=== PATIENT | male | born 2005 | race Hispanic/Latino ===

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

== ENCOUNTER 2023-08-05 11:27 | Observation (INO) | payer BC, OTHER ==
--- OUTSIDE RECORDS SUMMARY | 2023-08-05 11:29 | XMS REPORT | Continuity of Care Document ---
Author Name Unknown Address [address] [facility] [address] [id number] [facility] thconnect Address [address] [facility] [address] [place] [address] Care Team Providers Care Mother Repairer Name Role Phone Pcp, Patient Does Not Have A Attending Clinician Lab, Jose Christy I Attending Clinician Unavailab Eryn Granados PA-C Attending Clinician ERYN KAHN Attending Clinician Unavailable Payers Payer Name Policy Type Policy Number Effective Date Expirati on Date Source Allergies, Adverse Reactions, Alerts Allergy Name Allergy Type Status Severity Reaction(s) Onset Date Inactive Date Treating Clinician Comments Source NO KNOWN ALLERGIE S Drug Class Active [facility] Social History Social Habit Start Date Stop Date Quantity Comments Source Sex Assigned At [facility] Exposure to SARS-CoV-2 (event) Yes [facility] Smoking Status Start Date Stop Date Source Unknown if ever smoked [facility] Encounters Start Date/Time End Date/Time Encounter Type Admission Type Attending Clinicians Care Facility Care Department Encounter ID Source 2020-07-17 00:00:00 2020-07-17 00:00:00 Telephone Pcp, Patient Does Not Have A [facility] .[id number] [facility] 2020-07-15 16:43:38 2020-07-15 17:03:38 Laboratory Only Lab, Eryn Robbins [facility] ER Office [address] .114 [id number] [facility] 2020-07-15 16:40:00 2020-07-15 16:40:00 Outpatient ERYN RIOS [facility] [id number] [facility]
--- NOTE | 2023-08-05 12:09 | ER ---
Nurse's Notes [facility] Name: Jean Claude Mclaughlin Age: 18 yrs Sex: Male : 2005 Arrival Date: 08/05/2023 Time: 11:27 Bed 18 Private MD: Diagnosis: Cellulitis, unspecified;Failed outpatient therapy Presentation: 08/05 11:52 Chief complaint: Abscess on lower abdomen x 5 days. On Doxycycline and Mupirocin day 2. hb Coronavirus screen: At this time, the client does not indicate any symptoms associated with coronavirus-19. Ebola Screen: No symptoms or risks identified at this time. Initial Sepsis Screen: Does the patient meet any 2 criteria? No. Patient's initial sepsis screen is negative. Does the patient have a suspected source of infection? No. Patient's initial sepsis screen is negative. Risk Assessment: Do you want to hurt yourself or someone else? Patient reports no desire to harm self or others. Onset of symptoms was August 05, 2023. 11:52 Method Of Arrival: Ambulatory hb 11:52 Acuity: KIZZY 4 hb Historical: - Allergies: 11:54 No Known Allergies; hb - Home Meds: 11:54 None [Active]; hb - PMHx: 11:54 None; hb - PSHx: 11:54 None; hb - Immunization history:: Adult Immunizations up to date. - Social history:: Smoking status: . Screenin:18 [facility] ED Fall Risk Assessment (Adult) History of falling in the last 3 months, db including since admission No falls in past 3 months (0 pts) Confusion or Disorientation No (0 pts) Intoxicated or Sedated No (0 pts) Impaired Gait No (0 pts) Mobility Assist Device Used No (0 pt) Score/Fall Risk Level 0 - 2 = Low Risk Oriented to surroundings, Maintained a safe environment. Abuse screen: Denies threats or abuse. Denies injuries from another. Nutritional screening: No deficits noted. Tuberculosis screening: No symptoms or risk factors identified. Assessment: 14:10 Reassessment: Patient appears in no apparent distress at this time. Patient and/or db family updated on plan of care and expected duration. Pain level reassessed. Patient is alert, oriented x 3, equal unlabored respirations, skin warm/dry/pink. PATIENT RETURNED TO ROOM FROM CT. General: Appears in no apparent distress. comfortable, Behavior is calm, cooperative. Pain: Complains of pain in abdomen and suprapubic area. Neuro: Level of Consciousness is awake, alert, obeys commands, Oriented to person, place, time, situation. Respiratory: Airway is patent Respiratory effort is even, unlabored, Respiratory pattern is regular, symmetrical. 14:10 Reassessment: Patient appears in no apparent distress at this time. Patient and/or db family updated on plan of care and expected duration. Pain level reassessed. PATIENT RETURNED FROM CT. 14:16 Reassessment: REPORT GIVEN TO BRIANNA GALLARDO. db 14:27 Reassessment: Patient appears in no apparent distress at this time. Patient and/or db family updated on plan of care and expected duration. Pain level reassessed. Patient is alert, oriented x 3, equal unlabored respirations, skin warm/dry/pink. Vital Signs: 11:52 BP 163 / 99; Pulse 78; Resp 16; Temp 98.4(O); Pulse Ox 97% on R/A; Weight 162.84 kg; hb Height 5 ft. 6 in. ; Pain 2/10; 14:12 BP 144 / 89; Pulse 74; Resp 18; Pulse Ox 98% on R/A; db 11:52 Body Mass Index 57.94 (162.84 kg, 167.64 cm) hb 11:52 Pain Scale: Adult hb ED Course: 11:31 Patient arrived in ED. mg5 11:42 Stacey Muñiz, BRIANNA is Primary Nurse. db 11:43 [facility]C [facility] snw 11:43 Jovanni Green MD is Attending Physician. snw 11:54 Triage completed. hb 11:54 Arm band placed on. hb 12:07 Omar Casiano MD is Hospitalizing Provider. snw 12:28 Hemoglobin A1c Sent. tl4 12:28 Blood Culture Adult (2) Sent. tl4 12:28 Chem 7 Sent. tl4 12:28 CBC with Diff Sent. tl4 12:30 Inserted saline lock: 22 gauge in right antecubital area, using aseptic technique. bp Blood collected. 14:27 Patient has correct armband on for positive identification. Bed in low position. Call db light in reach. Side rails up X 1. Provided Education on: ADMISSION. Pulse ox on. NIBP on. 14:27 No provider procedures requiring assistance completed. Patient admitted, IV remains in db place. Administered Medications: 12:41 Drug: vancoMYCIN IVPB 1.5 grams IVPB at calculated rate once Route: IVPB; Rate: tl4 calculated rate; Site: right antecubital; 14:28 Follow up: Response: No adverse reaction; IV Status: Infusion continued upon admission db Medication: 14:27 VIS not applicable for this client. db Outcome: 12:08 Decision to Hospitalize by Provider. snw 14:27 Admitted to Med/surg via wheelchair, Report called to BRIANNA GALLARDO db 14:27 Condition: stable 14:27 Instructed on the need for admit, 14:54 Patient left the ED. eb Signatures: Roxane Bernardo, COUNTER FORMER-C COUNTER FORMER-Csnw Nadine Mead, RN RN Dyllan Nevarez, RN RN Colleen Berg Danielle, RN RN db Corazon Schmid mg5 Logdavirgilio, Chalo tl4
--- NOTE | 2023-08-05 12:09 | EDPHYS ---
Physician Documentation [facility] Name: Jean Claude Mclaughlin Age: 18 yrs Sex: Male : 2005 Arrival Date: 08/05/2023 Time: 11:27 Bed 18 Private MD: ED Physician Jovanni Green HPI: 08/05 12:41 This 18 yrs old Male presents to ER via Ambulatory with complaints of Boil. snw 12:41 The patient presents with cellulitis of the suprapubic area. Description: draining, snw erythematous. Onset: The symptoms/episode began/occurred 4 day(s) ago, and became persistent. The patient has not experienced similar symptoms in the past. The patient has been recently seen by a physician: the patient's primary care provider, 3 day(s) ago, with similar presenting complaints, was given a prescription for antibiotics. erythema increasing up toward belly button. Historical: - Allergies: 11:54 No Known Allergies; hb - Home Meds: 11:54 None [Active]; hb - PMHx: 11:54 None; hb - PSHx: 11:54 None; hb - Immunization history:: Adult Immunizations up to date. - Social history:: Smoking status: . ROS: 12:41 Constitutional: Negative for fever, chills, and weight loss, Eyes: Negative for injury, snw pain, redness, and discharge, ENT: Negative for injury, pain, and discharge, Neck: Negative for injury, pain, and swelling, Cardiovascular: Negative for chest pain, palpitations, and edema, Respiratory: Negative for shortness of breath, cough, wheezing, and pleuritic chest pain, Abdomen/GI: Negative for abdominal pain, nausea, vomiting, diarrhea, and constipation, Back: Negative for injury and pain, : Negative for injury, bleeding, discharge, and swelling, MS/Extremity: Negative for injury and deformity, Neuro: Negative for headache, weakness, numbness, tingling, and seizure, Psych: Negative for depression, anxiety, suicide ideation, homicidal ideation, and hallucinations, 12:41 Skin: Positive for cellulitis, of the suprapubic area, Exam: 12:27 Head/Face: Normocephalic, atraumatic. Eyes: Pupils equal round and reactive to light, snw extra-ocular motions intact. Lids and lashes normal. Conjunctiva and sclera are non-icteric and not injected. Cornea within normal limits. Periorbital areas with no swelling, redness, or edema. ENT: Nares patent. No nasal discharge, no septal abnormalities noted. Tympanic membranes are normal and external auditory canals are clear. Oropharynx with no redness, swelling, or masses, exudates, or evidence of obstruction, uvula midline. Mucous membranes moist. Neck: Trachea midline, no thyromegaly or masses palpated, and no cervical lymphadenopathy. Supple, full range of motion without nuchal rigidity, or vertebral point tenderness. No Meningismus. Chest/axilla: Normal chest wall appearance and motion. Nontender with no deformity. No lesions are appreciated. Cardiovascular: Regular rate and rhythm with a normal S1 and S2. No gallops, murmurs, or rubs. Normal PMI, no JVD. No pulse deficits. Respiratory: Lungs have equal breath sounds bilaterally, clear to auscultation and percussion. No rales, rhonchi or wheezes noted. No increased work of breathing, no retractions or nasal flaring. Abdomen/GI: Soft, non-tender, with normal bowel sounds. No distension or tympany. No guarding or rebound. No evidence of tenderness throughout. Back: No spinal tenderness. No costovertebral tenderness. Full range of motion. MS/ Extremity: Pulses equal, no cyanosis. Neurovascular intact. Full, normal range of motion. Neuro: Awake and alert, GCS 15, oriented to person, place, time, and situation. Cranial nerves II-XII grossly intact. Motor strength 5/5 in all extremities. Sensory grossly intact. Cerebellar exam normal. Normal gait. Psych: Awake, alert, with orientation to person, place and time. Behavior, mood, and affect are within normal limits. 12:27 Constitutional: The patient appears alert, awake, obese, 12:27 Skin: cellulitis, that is moderate, on the suprapubic area, folliculitis that became cutaneous abscess, ruptured on Sunday (48-72 hours ago), placed on doxy and mupirocin. Cellulitis expanding, erythema midway to umbilicus, Vital Signs: 11:52 BP 163 / 99; Pulse 78; Resp 16; Temp 98.4(O); Pulse Ox 97% on R/A; Weight 162.84 kg; hb Height 5 ft. 6 in. ; Pain 2/10; 14:12 BP 144 / 89; Pulse 74; Resp 18; Pulse Ox 98% on R/A; db 11:52 Body Mass Index 57.94 (162.84 kg, 167.64 cm) hb 11:52 Pain Scale: Adult hb MDM: 11:43 Patient medically screened. snw 12:31 Differential diagnosis: viral Infection, bacterial infection, cellulitis, abscess. Data snw reviewed: vital signs, nurses notes. Consideration of Admission/Observation Patient was admitted/placed on observation. Management of patient was discussed with the following: Hospitalist: Dr. Balderrama. Counseling: I had a detailed discussion with the patient and/or guardian regarding the historical points, exam findings, and any diagnostic results supporting the discharge/admit diagnosis, the presence of at least one elevated blood pressure reading (>120/80) during this emergency department visit, the need for further work-up and treatment in the hospital. 08/05 12:06 Order name: CBC with Diff; Complete Time: 12:49 snw 08/05 12:06 Order name: Chem 7; Complete Time: 12:58 snw 08/05 12:06 Order name: Blood Culture Adult (2) snw 08/05 12:06 Order name: Hemoglobin A1c snw 08/05 12:59 Order name: CT Abd/Pelvis - IV Contrast Only hb 08/05 14:24 Order name: CT; Complete Time: 14:27 EDMS Administered Medications: 12:41 Drug: vancoMYCIN IVPB 1.5 grams IVPB at calculated rate once Route: IVPB; Rate: tl4 calculated rate; Site: right antecubital; 14:28 Follow up: Response: No adverse reaction; IV Status: Infusion continued upon admission db Disposition Summary: 08/05/23 12:08 Hospitalization Ordered Notes: Hospitalization Status: Inpatient Admission snw Provider: Omar Casiano snsekou Condition: Stable snw Problem: new snw Symptoms: are unchanged snw Bed/Room Type: Standard snw Location: Telemetry/MedSurg (Inpatient)(08/05/23 14:07) eb Room Assignment: 219(08/05/23 14:07) eb Diagnosis - Cellulitis, unspecified snw - Failed outpatient therapy snw Forms: - Medication Reconciliation Form snw - SBAR form sn - Leadership Thank You Letter [facility] Signatures: Dispatcher [employer] EDRoxane Sarabia, MANAGER SEMICONDUCTOR-C MANAGER SEMICONDUCTOR-Csnw Nadine Mead, RN RN Colleen Lester Toni 4 Stacey Muñiz RN db Corrections: (The following items were deleted from the chart) 13:25 12:08 Telemetry/MedSurg (Inpatient) sn eb 13:25 12:08 [facility] eb 14: 13:25 [facility] ER HOLD eb eb 14: 13:25 ERHOLD- eb eb
[2023-08-05] MEDS ORDERED: NA CHLORIDE 0.9% 500 ML ONE (12:32)
[2023-08-05] MEDS ORDERED: VANCOMYCIN 1 GM/VIAL ONE (12:32)
[2023-08-05] MEDS ORDERED: VANCOMYCIN 500 MG/VIAL ONE (12:32)
[2023-08-05 12:44] LABS: Absolute Lymphocytes (CBC) 2.8 K/uL (0.7-4.9); Hematocrit 47.4 % (39.6-49.0); Lymphocytes % 32.5 % (15.3-44.8); MPV 8.2 fL (7.6-11.3); Platelets 256 thou/uL (152-406); RBC Red Blood Cell Count 5.45 M/uL (4.33-5.43)
[2023-08-05 12:58] LABS: Potassium 3.8 mEq/L (3.5-5.1)
--- NOTE | 2023-08-05 13:25 | P.HP ---
Certification for Inpatient Patient admitted to: Inpatient With expected LOS: >2 Midnights Patient will require the following post-hospital care: None Practitioner: I am a practitioner with admitting privileges, knowledge of patient current condition, hospital course, and medical plan of care. Services: Services provided to patient in accordance with Admission requirements found in Title 42 Section 412.3 of the Code of Federal Regulations <Sherif Pike - Last Filed: 08/05/23 13:22> Patient History Date of Service: 08/05/23 Reason for admission: Panniculitis History of Present Illness: 18-year-old otherwise healthy male presents to the emergency department with concern for infection of his pannus. He reports he noticed some erythema/infection on August 01, he was seen by a healthcare provider on August 03 and prescribed doxycycline and mupirocin ointment which she had been taking since then. He has noticed progressive worsening in the erythema and pain to his pannus and for that reason came to the emergency department for evaluation. He was evaluated in the emergency department as labs were unremarkable but he does have progressive erythema, pain to his pannus with a panniculitis and small area of open skin. ED provider wishes to admit patient for further evaluation management of panniculitisfailed outpatient management. After evaluating patient CT scans been ordered for further evaluation/rule out abscess. - Past Medical/Surgical History -: None -: Leg surgery -: Tonsils and adenoids Psychosocial/ Personal History: Patient is employed at a local [employer], lives at home with family - Family History Mother -: Cancer - Social History Alcohol use: No CD- Drugs: No Caffeine use: Yes Place of Residence: Home <Sherif Pike - Last Filed: 08/05/23 13:22> Date of Service: 08/05/23 <Omar Casiano - Last Filed: 08/05/23 14:58> Review of Systems 10-point ROS is otherwise unremarkable Gastrointestinal: Abdominal Pain Integumentary: Rash, As per HPI <Sherif Pike - Last Filed: 08/05/23 13:22> Physical Examination - Physical Exam General: Alert, In no apparent distress, Oriented x3 HEENT: Atraumatic, PERRLA Neck: Supple, 2+ carotid pulse no bruit Respiratory: Clear to auscultation bilaterally, Normal air movement Cardiovascular: Regular rate/rhythm, Normal S1 S2 Gastrointestinal: Normal bowel sounds, No tenderness Musculoskeletal: No tenderness Integumentary: Erythema (Pannus with erythema, tenderness, warmth, some mild induration expanding from previously marked areas at home) Neurological: Normal gait, Normal speech, Normal strength at 5/5 x4 extr, Normal tone - Studies Laboratory Data (last 24 hrs) 08/05/23 08/05/23 12:30 12:30 WBC 8.50 Hgb 16.1 Hct 47.4 Plt Count 256 Sodium 137 Potassium 3.8 BUN 9 Creatinine 1.05 Glucose 98 <Sherif Pike - Last Filed: 08/05/23 13:22> - Studies Laboratory Data (last 24 hrs) 08/05/23 08/05/23 12:30 12:30 WBC 8.50 Hgb 16.1 Hct 47.4 Plt Count 256 Sodium 137 Potassium 3.8 BUN 9 Creatinine 1.05 Glucose 98 <Omar Casiano - Last Filed: 08/05/23 14:58> Assessment and Plan - Plan Assessment: Panniculitis-failed outpatient management Plan: Panniculitis-failed outpatient management Continue IV antibioticsvancomycin CT abdomen pelvis with IV contrast rule out abscess formation/complications Monitor CBC daily-no SIRS criteria presently DVT PPX: Lovenox Code status: Full Discharge Plan: Home Plan to discharge in: 48 Hours - Advance Directives Does patient have a Living Will: No Does patient have a Durable POA for Healthcare: No - Code Status/Comfort Care Code Status Assessed: Yes (Full code) Critical Care: No Time Spent Managing Pts Care (In Minutes): 55 <Sherif Pike - Last Filed: 08/05/23 13:22> - Plan Patient seen and examined on admission in the ED with PURCHASING ENGINEER Shahzad. Agree with plan of care as noted above with following additions/corrections: failed 2 days of doxycycline. this is 2nd episode of similar issue. 1st one being ~1 year ago no fever/leukocytosis in ED erythema spread and had slight drainage so came in check CT to r/o abscess continue empiric IV abx anticipate dc home in ~2 days <Omar Casiano - Last Filed: 08/05/23 14:58>
--- NOTE | 2023-08-05 14:23 | RAD REPORT ---
EXAM DESCRIPTION: CT - Abdomen Pelvis W Contrast - 08/05/2023 2:04 pm CLINICAL HISTORY: Abdominal pain COMPARISON: none. TECHNIQUE: Computed axial tomography of the abdomen pelvis was obtained. 100 cc Isovue-300 was admin istered intravenously. Oral contrast was not requested which limits evaluation of bowel and appendix All CT scans are performed using dose optimization technique as appropriate and may include automated exposure control or mA/KV adjustment according to patient size. FINDINGS: The liver, spleen, pancreas, adrenal and kidneys appear unremarkable. There is no evidence of diverticulitis. Normal appendix. Tiny umbilical hernia Skin thickening of the anterior abdomen below the level of the umbilicus. No abscess IMPRESSION: Skin thickening of the anterior abdomen below the level of the umbilicus. Mild stranding within the adjacent subcutaneous fat may indicate a cellulitis No abscess
[2023-08-05] MEDS ORDERED: ONDANSETRON 4 MG/2 ML VIAL IV PRN (15:28)
[2023-08-05] MEDS ORDERED: ACETAMINOPHEN 325 MG TABLET PO PRN (15:28)
[2023-08-05 15:40] VITALS: BMI 56.3
[2023-08-05] MEDS: ENOXAPARIN 40 MG/0.4 ML SQ SCH (17:46)
[2023-08-05 23:34] VITALS: O2SAT 95
[2023-08-06] MEDS ORDERED: VANCOMYCIN 2 GM in NA CHLORIDE 0.9% 500 ML IVPB SCH (01:00)
[2023-08-06 05:53] LABS: Absolute Lymphocytes (CBC) 4.6 K/uL (0.7-4.9); Hematocrit 44.6 % (39.6-49.0); Lymphocytes % 47.2 % (15.3-44.8); MCV 87.6 fL (80-100); MPV 8.2 fL (7.6-11.3); Platelets 249 thou/uL (152-406); RBC Red Blood Cell Count 5.09 M/uL (4.33-5.43)
[2023-08-06 06:08] LABS: Potassium 3.8 mEq/L (3.5-5.1)
[2023-08-06] MEDS ORDERED: POTASSIUM CL SA 10 MEQ TAB PO ONE (09:00)
[2023-08-06 09:08] VITALS: BP 130/78; TEMP 97.7
[2023-08-06] MEDS: ENOXAPARIN 40 MG/0.4 ML SQ SCH (09:17)
--- NOTE | 2023-08-06 11:37 | P.DS ---
Admission Date: 08/05/23 Discharge Date: 08/06/23 Disposition: ROUTINE DISCHARGE Discharge Condition: GOOD Reason for Admission: Panniculitis Brief History of Present Illness: 18-year-old otherwise healthy male presents to the emergency department with concern for infection of his pannus. He reports he noticed some erythema/infection on August 01, he was seen by a healthcare provider on August 03 and prescribed doxycycline and mupirocin ointment which she had been taking since then. He has noticed progressive worsening in the erythema and pain to his pannus and for that reason came to the emergency department for evaluation. He was evaluated in the emergency department as labs were unremarkable but he does have progressive erythema, pain to his pannus with a panniculitis and small area of open skin. ED provider wishes to admit patient for further evaluation management of panniculitisfailed outpatient management. After evaluating patient CT scans been ordered for further evaluation/rule out abscess. Hospital Course: Plan: Panniculitis-failed outpatient management Patient was admitted to the hospital for panniculitis, his white blood cell count was normal on admission and remained normal. He has been afebrile, prior to hospitalization he was on doxycycline and mupirocin without significant improvement. Area of erythema with mild improvement overnight, patient doing well at this time. He is stable for discharge. Discharge new medications were given including: Augmentin 875 mg by mouth twice daily for 7 days Bactrim DS by mouth twice daily for 7 days Please discontinue doxycycline You may resume using mupirocin ointment Please follow-up with your primary care doctor 1 to 2 weeks Vital Signs/Physical Exam: Temp Pulse Resp BP Pulse Ox 97.7 F 65 16 130/78 96 08/06/23 08:00 08/06/23 08:00 08/06/23 08:00 08/06/23 08:00 08/06/23 08:00 General: Alert, In no apparent distress, Oriented x3 HEENT: Atraumatic, PERRLA Neck: Supple, JVD not distended Respiratory: Clear to auscultation bilaterally, Normal air movement Cardiovascular: Regular rate/rhythm, Normal S1 S2 Gastrointestinal: Normal bowel sounds, No tenderness Musculoskeletal: No tenderness Integumentary: Erythema (Panniculitis present, erythema improving), Warmth Neurological: Normal speech, Normal tone, Normal affect Lymphatics: No axilla or inguinal lymphadenopathy Laboratory Data at Discharge: WBC 9.70 thou/uL (4.3-10.9) 08/06/23 05:09 Hgb 15.2 g/dL (13.6-17.9) 08/06/23 05:09 Hct 44.6 % (39.6-49.0) 08/06/23 05:09 Plt Count 249 thou/uL (152-406) 08/06/23 05:09 Sodium 139 mEq/L (136-145) 08/06/23 05:09 Potassium 3.8 mEq/L (3.5-5.1) 08/06/23 05:09 BUN 9 mg/dL (7-18) 08/06/23 05:09 Creatinine 1.03 mg/dL (0.70-1.30) 08/06/23 05:09 Glucose 104 mg/dL (74-106) 08/06/23 05:09 Home Medications: Diclofenac Sodium [Voltaren] 75 mg PO BID 08/05/23 Semaglutide [Wegovy] 15 units SQ EVERY 7TH DAY 08/05/23 Amox/Clavulanate [Augmentin 875-125 Tab] 875 mg PO BID 7 Days #14 tab 08/06/23 Smz./Tmp. [Bactrim Ds 800 MG/160 MG] 1 tab PO BID 7 Days #14 tab 08/06/23 New Medications: Amox/Clavulanate [Augmentin 875-125 Tab] 875 mg PO BID 7 Days #14 tab Smz./Tmp. [Bactrim Ds 800 MG/160 MG] 1 tab PO BID 7 Days #14 tab Physician Discharge Instructions: Patient was admitted to the hospital for panniculitis, his white blood cell count was normal on admission and remained normal. He has been afebrile, prior to hospitalization he was on doxycycline and mupirocin without significant improvement. Area of erythema with mild improvement overnight, patient doing well at this time. He is stable for discharge. Discharge new medications were given including: Augmentin 875 mg by mouth twice daily for 7 days Bactrim DS by mouth twice daily for 7 days Please discontinue doxycycline You may resume using mupirocin ointment Please follow-up with your primary care doctor 1 to 2 weeks Diet: Regular Activity: Ad linda Followup: Pernell Isidro MD [Primary Care Provider] - 1-2 Weeks Time spent managing pt's care (in minutes): 30
== END 2023-08-06 12:04 | disposition home or self-care (01) ==
LOC: ER 11:27 → ERHOLD 13:01 → INTOOBSV 13:01 → 2ND 14:19
PROVIDERS: ADMIT Hospitalist; ATTEND Internal Medicine
DX: M79.3 Panniculitis, unspecified (principal); R10.30 Lower abdominal pain, unspecified; L53.9 Erythematous condition, unspecified
CPT/HCPCS: 87040 ×2; 85025 ×2; 80048 ×2; 36415; 74177; Q9967; J1650 ×2; J7040 ×2; G0378 ×3